=== PATIENT | male | born 1985 | race Caucasian/White ===

== ENCOUNTER 2016-09-22 10:17 | Emergency (ER) | payer OTHER ==
[2016-09-22 10:24] VITALS: BP 106/54; PULSE 64; TEMP 98.3; BMI 27.4
--- NOTE | 2016-09-22 12:06 | PDOC ---
History of Present Illness - General Chief Complaint: Pain Stated Complaint: ANKLE PAIN Time Seen by Provider: 09/22/16 11:28 History Source: Patient Exam Limitations: No Limitations - History of Present Illness Initial Comments: 09/22/16 12:36 Chief complaint: Twisted right ankle yesterday History of present illness: Patient is a 31-year-old male with no significant medical problems here today complaining of pain to his right bilateral ankle with bruising of right posterior lateral foot and ankle area after he stepped on a box yesterday twisting his right ankle. Patient reports that pain currently as a 6 or 7 after taking Aleve earlier and an 8 with applying pressure to his right foot. Patient denies any numbness of right foot or ankle. 09/23/16 16:52 09/23/16 16:52 09/23/16 16:52 Occurred: reports: yesterday Severity: Yes: moderate Lower Extremity Pain Location: right: ankle Method of Injury: Yes: twisted Modifying Factors: improves with: immobilization Lower Ext. Injury Location - Specific Injury Location Ankle: right ecchymosis, right pain, right swelling Foot: right foot ecchymosis (lateral ), right foot pain Extremity Pain Location - Extremity Pain Location Extremity Pain Locations: right: foot, ankle Past History - Past Medical History Allergies/Adverse Reactions: Allergies Allergy/AdvReac Type Severity Reaction Status Date / Time No Known Allergies Allergy Verified 09/22/16 10:24 Home Medications: Ambulatory Orders Ibuprofen 600 mg PO Q6H PRN #18 tablet 09/22/16 Anemia: No Asthma: No Cancer: No Cardiac Disorders: No CVA: No COPD: No CHF: No Dementia: No Diabetes: No GI Disorders: No Disorders: No HTN: No Hypercholesterolemia: No Liver Disease: No Suicide Attempt (Hx): No Seizures: No Thyroid Disease: No - Surgical History Abdominal Surgery: No Appendectomy: No Cardiac Surgery: No Cholecystectomy: No Lung Surgery: No Neurologic Surgery: No Orthopedic Surgery: No - Psycho/Social/Smoking Cessation Hx Suicidal Ideation: No Smoking History: Never smoked Have you smoked in the past 12 months: Yes Number of Cigarettes Smoked Daily: 3 'Breaking Loose' booklet given: 02/05/15 Hx Alcohol Use: Yes (SOCIAL) Drug/Substance Use Hx: No Substance Use Type: None Hx Substance Use Treatment: No Review of Systems - Review of Systems Able to Perform ROS?: Yes Constitutional: No: Symptoms Reported HEENTM: No: Symptoms Reported Respiratory: No: Symptoms reported Cardiac (ROS): No: Symptoms Reported ABD/GI: No: Symptoms Reported : No: Symptoms Reported Musculoskeletal: Yes: Joint Pain (rt. ankle b/l), Joint Swelling (b/l ankle rt. ) Integumentary: Yes: Bruising (rt. lateral foot ) Neurological: No: Symptoms reported *Physical Exam - Vital Signs Last Vital Signs Temp Pulse Resp BP Pulse Ox 98.3 F 64 20 106/54 97 09/22/16 10:21 09/22/16 10:21 09/22/16 10:21 09/22/16 10:21 09/22/16 10:21 - Physical Exam General Appearance: Yes: Appropriately Dressed Vascular Pulses: Dorsalis-Pedis (R): 4+ Extremity: positive: Normal Capillary Refill, Normal Range of Motion (rt.ankle) , Tender (rt. b/l ankle ), Swelling (rt. ankle b/l ) Integumentary: positive: Bruising (rt. foot bruising lateral ) Neurologic: positive: Normal Response, Respond to painful stimul (rt. foot/ ankle ), Responsive Deep Tendon Reflexes: Ankle (L): 4+ (no induration ) Procedures - Consent Consent obtained: From Patient - Splinting Splint Location: Right: Foot, Ankle Pre-Proc Neuro Vasc Exam: normal Pre-Made Type: aircast Carlos Bandage: 3" Complications: No ED Treatment Course - RADIOLOGY Radiology Studies Ordered: Category Date Time Status ANKLE & FOOT-RIGHT* [RAD] Stat Radiology 09/22/16 11:28 Completed Medical Decision Making - Medical Decision Making 09/22/16 12:37 Patient is a 31-year-old male with no significant medical problems here today complaining of pain to his right bilateral ankle with bruising of right posterior lateral foot and ankle area after he stepped on a box yesterday twisting his right ankle. Patient reports that pain currently as a 6 or 7 after taking Aleve earlier and an 8 with applying pressure to his right foot. Patient denies any numbness of right foot or ankle. Right foot ankle pain rule out fracture versus sprain Plan: X-ray right foot ankle bimalleolar edema noted no fracture noted per Dr. Bertha Gonzalez wrap to right ankle and Aircast and crutches Follow-up with orthopedist as soon as possible Patient instructed to elevate his right foot as much as possible and apply ice for 15 minutes every hour Ibuprofen 600 mg every 6 hours as needed for pain 09/22/16 12:38 09/23/16 16:55 *DC/Admit/Observation/Transfer Diagnosis at time of Disposition: Right ankle sprain Qualifiers: Encounter type: initial encounter Involved ligament of ankle: unspecified ligament Qualified Code(s): S93.401A - Sprain of unspecified ligament of right ankle, initial encounter - Discharge Dispostion Disposition: HOME Condition at time of disposition: Stable - Prescriptions Prescriptions: Ibuprofen 600 mg PO Q6H PRN #18 tablet PRN Reason: Pain - Referrals Referrals: Sandrine Peoples MD [Primary Care Provider] - Juan Manuel Aragon MD [Staff Physician] - - Patient Instructions Additional Instructions: Foot as much as possible and apply ice for 15 minutes every hour while awake today and tomorrow Keep Carlos wrap on an air cast during the day and use crutches for ambulation may take care cast and Carlos wrap off at night when sleeping Follow-up with orthopedist today or tomorrow Return to emergency room if symptoms worsen Patient voiced understanding of discharge instructions and all questions were answered - Post Discharge Activity Work/School Note: Back to Work
== END 2016-09-22 12:45 | disposition home or self-care (01) ==
LOC: JERFT 10:17
PROC: 2W3SX1Z Immobilization of Right Foot using Splint (ICD-10-PCS; principal; 2016-09-22)
DX: S93.401A Sprain of unspecified ligament of right ankle, initial encounter (principal); X58.XXXA Exposure to other specified factors, initial encounter; Y93.89 Activity, other specified; Y92.9 Unspecified place or not applicable; Z87.891 Personal history of nicotine dependence
CPT/HCPCS: 29515; 73610-TC-RT; 73630-TC-RT; 99282-25

== ENCOUNTER 2017-12-12 08:55 | Emergency (ER) | payer OTHER ==
[2017-12-12 09:09] VITALS: BP 113/60; PULSE 68; TEMP 98; BMI 24.7
[2017-12-12] MEDS ORDERED: IBUPROFEN 600 MG TABLET (FP) PO ONE ×2 (09:36→09:38)
--- NOTE | 2017-12-12 09:40 | PDOC ---
History of Present Illness - General Chief Complaint: Back Pain Stated Complaint: BACK PAIN Time Seen by Provider: 12/12/17 09:24 History Source: Patient Exam Limitations: No Limitations - History of Present Illness Initial Comments: 12/12/17 09:36 Patient states yesterday was sitting into his car, fell backwards heavily and banged the back of his back on the car seat. Since that time as had pain to his inferior left rib border and back musculature. No medication for relief. Denies numbness or tingling to hands or feet, denies any neck or spine pain. States pain is primarily to the left flank lower back area Occurred: reports: yesterday Severity: reports: mild, moderate Pain Location: reports: back Method of Injury: Yes: fall Modifying Factors: improves with: None Loss of Consciousness: no loss of consciousness Associated Symptoms (Fall): denies symptoms Past History - Travel Traveled outside of the country in the last 30 days: No Close contact w/someone who was outside of country & ill: No - Past Medical History Allergies/Adverse Reactions: Allergies Allergy/AdvReac Type Severity Reaction Status Date / Time No Known Allergies Allergy Verified 12/12/17 09:05 Home Medications: Ambulatory Orders Cyclobenzaprine HCl 10 mg PO Q8H PRN #14 tablet 12/12/17 Naproxen [Naprosyn -] 500 mg PO TID #30 tablet 12/12/17 Anemia: No Asthma: No Cancer: No Cardiac Disorders: No CVA: No COPD: No CHF: No Dementia: No Diabetes: No GI Disorders: No Disorders: No HTN: No Hypercholesterolemia: No Liver Disease: No Seizures: No Thyroid Disease: No - Surgical History Abdominal Surgery: No Appendectomy: No Cardiac Surgery: No Cholecystectomy: No Lung Surgery: No Neurologic Surgery: No Orthopedic Surgery: No - Suicide/Smoking/Psychosocial Hx Smoking History: Never smoked Have you smoked in the past 12 months: Yes Number of Cigarettes Smoked Daily: 3 Information on smoking cessation initiated: No 'Breaking Loose' booklet given: 02/05/15 Hx Alcohol Use: Yes (SOCIAL) Drug/Substance Use Hx: No Substance Use Type: None Hx Substance Use Treatment: No Review of Systems - Review of Systems Able to Perform ROS?: Yes Is the patient limited Mosotho proficient: Yes Constitutional: Yes: Symptoms Reported, See HPI, Malaise. No: Chills, Fever HEENTM: No: Symptoms Reported Respiratory: No: Symptoms reported Musculoskeletal: Yes: Symptoms Reported, See HPI, Back Pain, Joint Swelling, Muscle Pain Integumentary: Yes: See HPI. No: Symptoms Reported, Bruising All Other Systems: Reviewed and Negative *Physical Exam - Vital Signs Last Vital Signs Temp Pulse Resp BP Pulse Ox 98.0 F 68 18 113/60 100 12/12/17 09:05 12/12/17 09:05 12/12/17 09:05 12/12/17 09:05 12/12/17 09:05 - Physical Exam General Appearance: Yes: Nourished, Appropriately Dressed, Apparent Distress, Mild Distress HEENT: positive: VINH, Normal ENT Inspection, TMs Normal, Pharynx Normal Neck: positive: Supple. negative: Lymphadenopathy (R), Lymphadenopathy (L) Respiratory/Chest: positive: Lungs Clear, Normal Breath Sounds (no true rib tenderness, crepitus or step-off, has no mechanism for rib fracture) Cardiovascular: positive: Regular Rate Gastrointestinal/Abdominal: positive: Tender, Soft Musculoskeletal: positive: Normal Inspection, Muscle Spasm (tenderness along left paravertebral spinous muscles at waistline. No crepitus or step-offs to bone, no rashes lesions). negative: Vertebral Tenderness Extremity: positive: Normal Capillary Refill, Normal Inspection, Normal Range of Motion Integumentary: positive: Normal Color, Dry, Pale. 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, Fully Oriented, Alert, Normal Mood/ Affect, Normal Response, Motor Strength 5/5 Progress Note - Progress Note Progress Note: Mild back strain With NSAIDs and cyclobenzaprine *DC/Admit/Observation/Transfer Diagnosis at time of Disposition: Low back strain Qualifiers: Encounter type: initial encounter Qualified Code(s): S39.012A - Strain of muscle, fascia and tendon of lower back, initial encounter - Discharge Dispostion Disposition: HOME Condition at time of disposition: Stable - Prescriptions Prescriptions: Cyclobenzaprine HCl 10 mg PO Q8H PRN #14 tablet PRN Reason: spasm Naproxen [Naprosyn -] 500 mg PO TID #30 tablet - Referrals Referrals: Sandrine Peoples MD [Primary Care Provider] - - Patient Instructions Printed Discharge Instructions: DI for Back Strain or Sprain Additional Instructions: Rest, no heavy lifting or exercise until pain is resolved Hot soaks to neck and low back as often as possible/hot showers or Jacuzzis No massage or therapy until spasm is gone Continue Naprosyn 500 mg tablet, 1 tablet every 8 hours for the next 3 days then as needed for pain and swelling Cyclobenzaprine 1-10mg every 8 hours as needed for spasm If not significant improvement within 24 hours with medication and rest regime, followup with private physician for change in medications and /or therapy. - Post Discharge Activity Forms/Work/School Notes: Back to Work
== END 2017-12-12 09:49 | disposition home or self-care (01) ==
LOC: JERFT 08:55 → JER 08:55 → JERFT 09:49
DX: S39.012A Strain of muscle, fascia and tendon of lower back, initial encounter (principal); W01.198A Fall on same level from slipping, tripping and stumbling with subsequent striking against other object, initial encounter; Y93.89 Activity, other specified; Y92.810 Car as the place of occurrence of the external cause; Y99.8 Other external cause status
CPT/HCPCS: 99281-25

== ENCOUNTER 2018-08-03 20:35 | Emergency (ER) | payer OTHER ==
[2018-08-03 20:55] VITALS: BP 119/54; PULSE 85; TEMP 98.7; BMI 25.7
--- NOTE | 2018-08-03 20:56 | PDOC ---
History of Present Illness - General Chief Complaint: Injury Stated Complaint: ANKLE INJURY Time Seen by Provider: 08/03/18 20:53 - History of Present Illness Initial Comments: 08/03/18 21:30 CHIEF COMPLAINT: Ankle injury HISTORY OF PRESENT ILLNESS: This is an otherwise healthy 32-year-old male who presents for evaluation of right ankle pain and swelling. 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 Since then he has been able to bear only partial weight. He denies loss of sensation or any other symptoms. He did not sustain any other injuries. REVIEW OF SYSTEMS: GENERAL/CONSTITUTIONAL: No fever or chills. No weakness. No weight change. MUSCULOSKELETAL: See HPI. SKIN: No rash or easy bruising. NEUROLOGIC: No headache, vertigo, loss of consciousness, or loss of sensation. HEMATOLOGIC/LYMPHATIC: No anemia, easy bleeding, or history of blood clots. ALLERGIC/IMMUNOLOGIC: No hives or skin allergy. No latex allergy. PHYSICAL EXAM: GENERAL: The patient is awake, alert, and fully oriented, in no acute distress. EXTREMITIES: Right lateral malleolar tenderness and swelling. Movement and sensation of toes intact. NEUROLOGICAL: Normal speech. CN II-XII grossly intact. PSYCH: Normal mood, normal affect. SKIN: Warm, dry, normal turgor, no rashes or lesions noted. Past History - Past Medical History Allergies/Adverse Reactions: Allergies Allergy/AdvReac Type Severity Reaction Status Date / Time No Known Allergies Allergy Verified 08/03/18 20:55 Home Medications: Ambulatory Orders Cyclobenzaprine HCl 10 mg PO Q8H PRN #14 tablet 12/12/17 Naproxen [Naprosyn -] 500 mg PO TID #30 tablet 12/12/17 Ibuprofen 600 mg PO Q6H #30 tablet 08/03/18 Anemia: No Asthma: No Cancer: No Cardiac Disorders: No CVA: No COPD: No CHF: No Dementia: No Diabetes: No GI Disorders: No Disorders: No HTN: No Hypercholesterolemia: No Liver Disease: No Seizures: No Thyroid Disease: No - Surgical History Abdominal Surgery: No Appendectomy: No Cardiac Surgery: No Cholecystectomy: No Lung Surgery: No Neurologic Surgery: No Orthopedic Surgery: No - Suicide/Smoking/Psychosocial Hx Smoking History: Never smoked Have you smoked in the past 12 months: Yes Number of Cigarettes Smoked Daily: 3 'Breaking Loose' booklet given: 02/05/15 Hx Alcohol Use: Yes (SOCIAL) Drug/Substance Use Hx: No Substance Use Type: None Hx Substance Use Treatment: No Medical Decision Making - Medical Decision Making 08/03/18 21:32 A/P: 32-year-old male with right ankle injury. -Ankle/foot and tubes/fib x-rays preliminary read: Negative -Ibuprofen for pain -Yoon dressing applied -Crutches given -RICE therapy reviewed -Orthopedic referral *DC/Admit/Observation/Transfer Diagnosis at time of Disposition: Right ankle sprain Qualifiers: Encounter type: initial encounter Involved ligament of ankle: unspecified ligament Qualified Code(s): S93.401A - Sprain of unspecified ligament of right ankle, initial encounter Right knee pain Qualifiers: Chronicity: acute Qualified Code(s): M25.561 - Pain in right knee - Discharge Dispostion Disposition: HOME Condition at time of disposition: Stable Decision to Admit order: No - Prescriptions Prescriptions: Ibuprofen 600 mg PO Q6H #30 tablet - Referrals Referrals: Keith Son DO [Staff Physician] - 14 days (Orthopedics) - Patient Instructions Printed Discharge Instructions: DI for Ankle Sprain Additional Instructions: -Rest with your foot elevated above the level of your heart -Apply ice for 15 minutes at a time 5 times daily -Wear the compression dressing given 2 and use crutches to minimize weightbearing -Follow-up with orthopedics if symptoms not improved within 2 weeks -Return to the emergency department for loss of sensation in your toes or any other concerning symptoms - Post Discharge Activity Forms/Work/School Notes: Back to Work
--- NOTE | 2018-08-03 20:59 | PDOC ---
Rapid Medical Evaluation Chief Complaint: Injury Time Seen by Provider: 08/03/18 20:53 Medical Evaluation: Allergies Allergy/AdvReac Type Severity Reaction Status Date / Time No Known Allergies Allergy Verified 08/03/18 20:55 Vital Signs Temp Pulse Resp BP Pulse Ox 98.7 F 85 18 119/54 L 98 08/03/18 20:51 08/03/18 20:51 08/03/18 20:51 08/03/18 20:51 08/03/18 20:51 08/03/18 21:06 I have performed a brief in-person evaluation of this patient. The patient presents with a chief complaint of: right ankle and leg pain s/p twisting right ankle on a curbside this afternoon. Pertinent physical exam findings: moderate tenderness over dorsum and lateral aspect of right ankle I have ordered the following: Rt ankle and tib-fib x-ray The patient will proceed to the ED for further evaluation. Discharge Disposition - Diagnosis Right ankle sprain Qualifiers: Encounter type: initial encounter Involved ligament of ankle: unspecified ligament Qualified Code(s): S93.401A - Sprain of unspecified ligament of right ankle, initial encounter Right knee pain Qualifiers: Chronicity: acute Qualified Code(s): M25.561 - Pain in right knee - Discharge Dispostion Condition at time of disposition: Stable - Referrals - Patient Instructions - Post Discharge Activity
[2018-08-03] MEDS ORDERED: IBUPROFEN 600 MG TABLET (FP) PO ONE ×2 (21:27→21:39)
== END 2018-08-03 21:51 | disposition home or self-care (01) ==
LOC: JERFT 20:35
PROC: 2W3QX1Z Immobilization of Right Lower Leg using Splint (ICD-10-PCS; principal; 2018-08-03)
DX: S93.401A Sprain of unspecified ligament of right ankle, initial encounter (principal); W00.2XXA Other fall from one level to another due to ice and snow, initial encounter; Y93.89 Activity, other specified; Y92.89 Other specified places as the place of occurrence of the external cause; Y99.0 Civilian activity done for income or pay
CPT/HCPCS: 73590-TC-RT-FY; 73610-TC-RT-FY; 73630-TC-RT-FY; 99281-25